=== PATIENT | male | born 1945 | race Caucasian/White ===

== ENCOUNTER 2020-01-20 05:04 | Day surgery (SDC) | payer MEDICARE, MEDICAID ==
[2020-01-20] MEDS ORDERED: MOXIFLOXACIN HCL (OPHTH) 1 DROP DROPS ONE (08:28)
[2020-01-20] MEDS ORDERED: PROPARACAINE 0.5% OPHTH SOL 15 ML BTTL ONE (08:28)
[2020-01-20] MEDS ORDERED: TROP1%/CYCLOPEN 1%/PHENYL 2.5% DROPS ONE (08:28)
[2020-01-20] MEDS ORDERED: MIDAZOLAM INJ 2 MG/2 ML VIAL ONE (10:44)
[2020-01-20] MEDS: PROPARACAINE 0.5% OPHTH SOL 15 ML BTTL LEFT_EYE ONE (10:54)
[2020-01-20] MEDS: LIDOCAINE 1% MPF 2 ML VIAL INJ ONE (11:01)
[2020-01-20] MEDS: BRIMONIDINE 0.2% OPHTH DROPS LEFT_EYE ONE (11:16)
[2020-01-20] MEDS: MOXIFLOXACIN HCL (OPHTH) 1 DROP DROPS LEFT_EYE ONE (11:16)
[2020-01-20] MEDS: TOBRAMYCIN SULF 0.3 % OPHT SOL 1 DROP LEFT_EYE ONE (11:16)
[2020-01-20] MEDS: DEXAMETHASONE 0.1% OPHTH SOL 1 DROP LEFT_EYE ONE (11:16)
== END 2020-01-20 12:00 | disposition home or self-care (01) ==
LOC: AMB 05:04
PROVIDERS: ATTEND Ophthalmology
DX: H25.042 Posterior subcapsular polar age-related cataract, left eye (principal); I10 Essential (primary) hypertension; I25.10 Atherosclerotic heart disease of native coronary artery without angina pectoris; I25.2 Old myocardial infarction; K21.9 Gastro-esophageal reflux disease without esophagitis; J44.9 Chronic obstructive pulmonary disease, unspecified; Z88.8 Allergy status to other drugs, medicaments and biological substances; Z79.899 Other long term (current) drug therapy
CPT/HCPCS: 00142; 66984; J2250